=== PATIENT | male | born 1950 | race Caucasian/White ===

== ENCOUNTER 2021-12-16 20:28 | Inpatient (IN) | payer MEDICARE, OTHER ==
[2021-12-16 22:00] LABS: Appearance,Urine Clear (Clear); Bilirubin,Urine Negative (Negative); Blood,Urine Negative (Negative); Color,Urine Colorless; Glucose,Urine (UA) Trace (Negative); Ketones,Urine Negative (Negative); Leukocyte Esterase,Urine Negative (Negative); Nitrite,Urine Negative (Negative); Protein,Urine Negative (Negative); Specific Gravity,Urine 1.009 (1.001-1.035); Urobilinogen,Urine <2.0 mg/dL (<2.0)
[2021-12-17] MEDS ORDERED: SODIUM CHLORIDE 0.9% 1,000 ML IV STA (01:05)
[2021-12-17] MEDS ORDERED: KETOROLAC 15 MG/ML 1 ML VIAL IVP STA (01:39)
[2021-12-17] MEDS ORDERED: MORPHINE SULFATE 4 MG/ML SYRINGE IVP STA (01:39)
--- NOTE | 2021-12-17 01:39 | ED ---
Recheck HPI - General Chief Complaint: Abdominal Pain Stated Complaint: kidney stones Time Seen by Provider: 12/17/21 01:01 Source: patient Mode of arrival: ambulatory Limitations: no limitations - History of Present Illness Initial Comments: This is a 71-year-old male to the emergency department for evaluation. Patient was told by primary care to come seen regarding severe back pain possible kidney stone. Patient was told he has kidney stones and patient states he has a history of kidney stones. Patient states he has severe back pain both sides rating around his abdomen. He states the pain stability, he cannot walk. Have difficulty with movement. MD Complaint: medication refill request -: week(s) Returns Today for: persistent/worsening pain related to initial visit Symptoms Since Prior Visit: worsening pain Context: ran out of medication Associated Symptoms: abdominal pain Treatments Prior to Arrival: Given Pain Meds on - Related Data Allergies Allergy/AdvReac Type Severity Reaction Status Date / Time No Known Allergies Allergy Verified 12/16/21 20:51 Review of Systems ROS Statement: Those systems with pertinent positive or pertinent negative responses have been documented in the HPI. ROS Other: All systems not noted in ROS Statement are negative. Past Medical History Past Medical History: Coronary Artery Disease (CAD), Dementia, Hypertension History of Any Multi-Drug Resistant Organisms: None Reported Past Surgical History: Heart Catheterization With Stent Past Psychological History: No Psychological Hx Reported Smoking Status: Former smoker Past Alcohol Use History: None Reported Past Drug Use History: None Reported General Exam Limitations: no limitations General appearance: alert, in no apparent distress, anxious Head exam: Present: atraumatic, normocephalic, normal inspection Eye exam: Present: normal appearance, PERRL, EOMI. Absent: scleral icterus, conjunctival injection, periorbital swelling ENT exam: Present: normal exam, mucous membranes moist Neck exam: Present: normal inspection. Absent: tenderness, meningismus, lymphadenopathy Respiratory exam: Present: normal lung sounds bilaterally. Absent: respiratory distress, wheezes, rales, rhonchi, stridor Cardiovascular Exam: Present: normal rhythm, tachycardia, normal heart sounds. Absent: systolic murmur, diastolic murmur, rubs, gallop, clicks GI/Abdominal exam: Present: soft, normal bowel sounds. Absent: distended, tenderness, guarding, rebound, rigid Extremities exam: Present: normal inspection, full ROM, normal capillary refill. Absent: tenderness, pedal edema, joint swelling, calf tenderness Back exam: Present: normal inspection, tenderness, CVA tenderness (R), muscle spasm. Absent: full ROM Neurological exam: Present: alert, oriented X3, CN II-XII intact Psychiatric exam: Present: normal affect, normal mood Skin exam: Present: warm, dry, intact, normal color. Absent: rash Course Vital Signs 12/16/21 20:44 Temperature 98.3 F Pulse Rate 114 H Respiratory 20 Rate Blood Pressure 184/79 O2 Sat by Pulse 97 Oximetry - Reevaluation(s) Reevaluation #1: 12/17/21 04:34 Medical record is reviewed Reevaluation #2: 12/17/21 04:34 Patient's pain is improved Reevaluation #3: 12/17/21 04:34 Patient informed results and questions answered - Consultations Consultation #1: Spoke with Dr. Corbin we'll admit this patient Medical Decision Making - Medical Decision Making 71 male to the emergency department for evaluation patient presents today for evaluation regards to severe back pain. Back pain with a lumbar spine fracture L S1 compression fracture. Patient given pain control which has mild improvement will be admitted for further evaluation management - Lab Data Result diagrams: 12/17/21 01:43 12/17/21 01:43 Lab Results 12/16/21 12/17/21 12/17/21 Range/Units 20:55 01:43 01:43 WBC 9.3 (3.8-10.6) k/uL RBC 3.51 L (4.30-5.90) m/uL Hgb 11.2 L (13.0-17.5) gm/dL Hct 33.3 L (39.0-53.0) % MCV 94.9 (80.0-100.0) fL MCH 32.1 (25.0-35.0) pg MCHC 33.8 (31.0-37.0) g/dL RDW 12.9 (11.5-15.5) % Plt Count 327 (150-450) k/uL MPV 8.0 Neutrophils % 72 % Lymphocytes % 15 % Monocytes % 7 % Eosinophils % 2 % Basophils % 0 % Neutrophils # 6.7 (1.3-7.7) k/uL Lymphocytes # 1.4 (1.0-4.8) k/uL Monocytes # 0.6 (0-1.0) k/uL Eosinophils # 0.2 (0-0.7) k/uL Basophils # 0.0 (0-0.2) k/uL Sodium 133 L (137-145) mmol/L Potassium 5.0 (3.5-5.1) mmol/L Chloride 102 (98-107) mmol/L Carbon Dioxide 16 L (22-30) mmol/L Anion Gap 15 mmol/L BUN 27 H (9-20) mg/dL Creatinine 1.91 H (0.66-1.25) mg/dL Est GFR (CKD-EPI)AfAm 40 (>60 ml/min/1.73 sqM) Est GFR (CKD-EPI)NonAf 35 (>60 ml/min/1.73 sqM) Glucose 219 H (74-99) mg/dL Plasma Lactic Acid Dirk (0.7-2.0) mmol/L Calcium 9.1 (8.4-10.2) mg/dL Total Bilirubin 0.6 (0.2-1.3) mg/dL AST 25 (17-59) U/L ALT 27 (4-49) U/L Alkaline Phosphatase 98 (38-126) U/L Total Protein 6.9 (6.3-8.2) g/dL Albumin 4.3 (3.5-5.0) g/dL Amylase 78 (30-110) U/L Lipase 154 (23-300) U/L Urine Color Colorless Urine Appearance Clear (Clear) Urine pH 5.0 (5.0-8.0) Ur Specific [place] 1.009 (1.001-1.035) Urine Protein Negative (Negative) Urine Glucose (UA) Trace H (Negative) Urine Ketones Negative (Negative) Urine Blood Negative (Negative) Urine Nitrite Negative (Negative) Urine Bilirubin Negative (Negative) Urine Urobilinogen <2.0 (<2.0) mg/dL Ur Leukocyte Esterase Negative (Negative) 12/17/21 Range/Units 01:43 WBC (3.8-10.6) k/uL RBC (4.30-5.90) m/uL Hgb (13.0-17.5) gm/dL Hct (39.0-53.0) % MCV (80.0-100.0) fL MCH (25.0-35.0) pg MCHC (31.0-37.0) g/dL RDW (11.5-15.5) % Plt Count (150-450) k/uL MPV Neutrophils % % Lymphocytes % % Monocytes % % Eosinophils % % Basophils % % Neutrophils # (1.3-7.7) k/uL Lymphocytes # (1.0-4.8) k/uL Monocytes # (0-1.0) k/uL Eosinophils # (0-0.7) k/uL Basophils # (0-0.2) k/uL Sodium (137-145) mmol/L Potassium (3.5-5.1) mmol/L Chloride (98-107) mmol/L Carbon Dioxide (22-30) mmol/L Anion Gap mmol/L BUN (9-20) mg/dL Creatinine (0.66-1.25) mg/dL Est GFR (CKD-EPI)AfAm (>60 ml/min/1.73 sqM) Est GFR (CKD-EPI)NonAf (>60 ml/min/1.73 sqM) Glucose (74-99) mg/dL Plasma Lactic Acid Dirk 3.2 H* (0.7-2.0) mmol/L Calcium (8.4-10.2) mg/dL Total Bilirubin (0.2-1.3) mg/dL AST (17-59) U/L ALT (4-49) U/L Alkaline Phosphatase (38-126) U/L Total Protein (6.3-8.2) g/dL Albumin (3.5-5.0) g/dL Amylase (30-110) U/L Lipase (23-300) U/L Urine Color Urine Appearance (Clear) Urine pH (5.0-8.0) Ur Specific [place] (1.001-1.035) Urine Protein (Negative) Urine Glucose (UA) (Negative) Urine Ketones (Negative) Urine Blood (Negative) Urine Nitrite (Negative) Urine Bilirubin (Negative) Urine Urobilinogen (<2.0) mg/dL Ur Leukocyte Esterase (Negative) - Radiology Data Radiology results: report reviewed (CT lumbosacral spine area and pelvis does show L1 compression fracture4 compression fracture old), image reviewed Disposition Clinical Impression: Compression fracture of L1 lumbar vertebra, Back pain Disposition: ADMITTED IP TO THIS [facility] Condition: Good Is patient prescribed a controlled substance at d/c from ED?: No Referrals: Ashutosh Johnston MD [Primary Care Provider] - 1-2 days Time of Disposition: 04:30
[2021-12-17 02:21] LABS: Basophils % (A) 0 %; Eosinophils # (A) 0.2 k/uL (0-0.7); Eosinophils % (A) 2 %; HCT 33.3 % (39.0-53.0); HGB 11.2 gm/dL (13.0-17.5); Lymphocytes # (A) 1.4 k/uL (1.0-4.8); Lymphocytes % (A) 15 %; MCH 32.1 pg (25.0-35.0); MCHC 33.8 g/dL (31.0-37.0); MCV 94.9 fL (80.0-100.0); Monocytes # (A) 0.6 k/uL (0-1.0); Monocytes % (A) 7 %; Neutrophils # (A) 6.7 k/uL (1.3-7.7); Neutrophils % (A) 72 %; Platelet Count 327 k/uL (150-450); RBC 3.51 m/uL (4.30-5.90); RDW 12.9 % (11.5-15.5); WBC 9.3 k/uL (3.8-10.6)
--- NOTE | 2021-12-17 02:49 | CT ---
EXAMINATION TYPE: CT abdomen pelvis wo con DATE OF EXAM: 12/17/2021 COMPARISON: Single view single view HISTORY: abdominal pain/ kidney stones. no prior on PACS CT DLP: 545.7 mGycm Automated exposure control for dose reduction was used. Images obtained from the diaphragm to the floor the pelvis without contrast. The lung bases are clear. No pleural effusion. Heart size is normal. No pericardial effusion. There i s coronary artery calcification. There are multiple calcified gallstones. Liver is intact. The bile ducts are not dilated. Spleen is i ntact. The stomach is intact. There is no pancreatic mass. There is no adrenal mass. Kidneys show normal size and contour. No hydronephrosis. The ureters are no t dilated. No retroperitoneal adenopathy. The bladder distends smoothly. No inguinal hernia no free f luid in the pelvis. No pelvic mass. There is no mesenteric edema. There is no ascites or free air. No sign of a bowel obstruction. Append ix not seen. No sign of thickened appendix. There is 2 mm calculus lower pole left kidney. The lumbar vertebrae have normal alignment. There is L1 compression fracture 30%. This fracture could be acute. The bony pelvis is intact. The hip joints are intact. IMPRESSION: Nonobstructing left renal calculus. L1 compression fracture could be an acute fracture. There is L4 m ild compression fracture which is likely old.
[2021-12-17 02:59] LABS: Albumin 4.3 g/dL (3.5-5.0); Calcium 9.1 mg/dL (8.4-10.2); Total Bilirubin 0.6 mg/dL (0.2-1.3); Total Protein 6.9 g/dL (6.3-8.2)
[2021-12-17] MEDS ORDERED: ACETAMINOPHEN TAB 325 MG TAB PO PRN (04:32)
[2021-12-17] MEDS ORDERED: ONDANSETRON 4 MG/2 ML VIAL IVP PRN (04:32)
[2021-12-17] MEDS ORDERED: MORPHINE SULFATE 4 MG/ML SYRINGE IV PRN (04:32)
[2021-12-17] MEDS ORDERED: NALOXONE 0.4 MG/ML 1 ML VIAL IV PRN (04:32)
[2021-12-17] MEDS ORDERED: HYDROmorphone 1 MG/ML 1 ML SYRINGE IVP STA (04:32)
[2021-12-17] MEDS ORDERED: DEXTROSE 50% SYRINGE 50 ML IVP PRN ×2 (09:38)
[2021-12-17] MEDS ORDERED: lisinopriL 10 MG TAB PO SCH (10:00)
[2021-12-17] MEDS: SODIUM CHLORIDE 0.9% 1,000 ML IV SCH ×3 (10:40→21:57)
[2021-12-17] MEDS: PANTOPRAZOLE 40 MG TABLET PO SCH (10:41)
[2021-12-17] MEDS: MULTIVITAMINS, THERA 1 EACH TAB PO SCH (10:41)
[2021-12-17] MEDS: ASPIRIN 81 MG PO SCH (10:41)
[2021-12-17] MEDS: TAMSULOSIN 0.4 MG CAP.ER.24H PO SCH (10:41)
[2021-12-17] MEDS: METOPROLOL TARTRATE 25 MG TAB PO SCH ×2 (10:41→19:59)
[2021-12-17] MEDS: ENOXAPARIN 40 MG/0.4 ML SYRINGE SQ SCH (10:41)
[2021-12-17] MEDS: INSULIN DETEMIR (LEVEMIR) 100 UNIT/ML SYR SQ SCH (10:42)
[2021-12-17] MEDS ORDERED: CALCIUM CARBONATE 500 MG CHEWABLE PO PRN (11:20)
[2021-12-17] MEDS ORDERED: TEMAZEPAM 15 MG CAP PO PRN (11:20)
[2021-12-17] MEDS ORDERED: LORazepam 0.5 MG TAB PO PRN (11:20)
[2021-12-17] MEDS: LIDOCAINE 5% PATCH TOPICAL SCH (12:01)
--- NOTE | 2021-12-17 12:02 | P.HPIM ---
History of Present Illness H&P Date: 12/17/21 Chief Complaint: Back pain This is a pleasant 71-year-old patient follows with Dr. Johnston. Chronic stable medical conditions include CAD with stent, hypertension, some cognitive impairment, chronically uses a cane. Patient has known gallstones and kidney stone. About 2 weeks ago rather suddenly patient developed pain describes the middle of the mid to lower back. Pain sometimes does radiate down to the sites. Slight nausea. Patient did get pain medications from his family doctor. It has been unclear if patient's kidney stones were causing his symptoms. No change in urinary symptoms. At her baseline has 2 or 3 bowel movements a day now but has been some constipation because of pain medication using a laxative. Denies any fever. Denies any fall. Any movement makes the pain worse. Finding it difficult to walk because of the same. Review of systems: GEN.: Tired EYES: None HEENT: Decreased hearing NECK: None RESPIRATORY: None CARDIOVASCULAR: None GASTROINTESTINAL: None GENITOURINARY: None MUSCULOSKELETAL: As above LYMPHATICS: None HEMATOLOGICAL: None PSYCHIATRY: None NEUROLOGICAL: Slightly forgetful Past medical history to include: CAD with stent, hypertension, some cognitive impairment, hypertension Social history: . Retired from factory work. No alcohol. Stopped smoking over 20 years ago. Family history: Reviewed, noncontributory to presentation Physical examination: VITAL SIGNS: 98.3, 114, 20, 1 38 x 78, 98% room air GENERAL: BMI 24, sitting up in a chair awake a bit uncomfortable. EYES: Pupils equal. Conjunctiva normal. HEENT: External appearance of nose and ears normal, oral cavity grossly normal decreased hearing. NECK: JVD not raised; masses not palpable. HEART: First and second heart sounds are normal; no edema. LUNGS: Respiratory rate normal; clear to auscultation. ABDOMEN: Soft, nontender, liver spleen not palpable, no masses palpable. PSYCH: Alert and oriented x3; mood and affect normal. MUSCULOSKELETAL:No Clubbing/cyanosis;muscles-grossly intact, reproducible pain on moving the back on her axial axis. Mild tenderness bilaterally in the paraspinal area in the lumbar area NEUROLOGICAL: Cranial nerves grossly intact; no facial asymmetry, power and sensation grossly intact. LYMPHATICS: No lymph nodes palpable in the axilla and neck INVESTIGATIONS, reviewed in the clinical context: WBC 9.3 hemoglobin 11.2 platelets 327 sodium 133 potassium 5 be on 27 creatinine 1.91 UA: Glucose trace Computed tomography scan abdomen and pelvis without contrast: Multiple calcified gallstones. Mild ducts not dilated. 2 mm calculus lower pole left kidney. L1 compression fraction 30%. Could be acute. L4 mild compression fracture. Assessment and plan: -Patient is at acute mid back pain in the lumbar area for about 2 weeks. Came on rather suddenly. Sometimes does radiate to the sides. Increase with body movements and ventral get out of bed. No fever no chills. Patient's had some chronic radiation down to the right thigh. Computed tomography scan does show L1 compression fracture for her to be acute and possible L4 that is chronic. Consults orthopedic spine. K pad. Will need a brace. [place] 5 scheduled. Flexeril for muscle spasm. Avoid NSAIDs because of kidney function -Left kidney 2 mm kidney stone. Not felt to be causing the presentation as patient has been on the right side too. Patient rather concerned about the same. We'll get a urology consultation. Hydrate. -Calcified right-sided cholelithiasis. No right upper quadrant tenderness. [place] to be asymptomatic -CAD with stent Aspirin, Lopressor -Diabetes mellitus type 2 on oral hypoglycemic Hold metformin because of renal function. Levemir 16 units. Follow Accu-Cheks with sliding scale -Hyperlipidemia Lipitor -Acute versus chronic kidney disease. Patient had been taking Motrin at home. Hold the same. Hold quinapril. IV fluids. Renal ultrasound. Repeat labs. -GERD Nexium -BPH Flomax Lumbar spine x-ray. Consult orthopedic spine. Levemir to 16 units. Follow Accu-Cheks. Hold oral hypoglycemic. Resume other home medications. K pad. [place]. Flexeril. Renal ultrasound. Given the complexity and severity of patient's condition expect the patient to be in the hospital at least for 2 overnights Past Medical History Past Medical History: Coronary Artery Disease (CAD), Dementia, Hypertension History of Any Multi-Drug Resistant Organisms: None Reported Past Surgical History: Heart Catheterization With Stent Past Psychological History: No Psychological Hx Reported Smoking Status: Former smoker Past Alcohol Use History: None Reported Past Drug Use History: None Reported Medications and Allergies Home Medications Medication Instructions Recorded Confirmed Type Aspirin EC [Ecotrin Low Dose] 81 mg PO DAILY 12/17/21 12/17/21 History Atorvastatin [Lipitor] 80 mg PO HS 10/13/22 10/13/22 History Esomeprazole Magnesium [NexIUM] 20 mg PO DAILY 12/17/21 12/17/21 History HYDROcodone/APAP 10-325MG [[place] 1 tab PO TID 12/17/21 12/17/21 History 10-325] Ibuprofen [Motrin] 800 mg PO TID 12/17/21 12/17/21 History Metoprolol Tartrate [Lopressor] 25 mg PO BID 12/17/21 12/17/21 History Multivitamins, Thera [Multivitamin 1 tab PO DAILY 12/17/21 12/17/21 History (formulary)] Quinapril HCl 10 mg PO DAILY 12/17/21 12/17/21 History Saw [place] 500 mg PO DAILY 12/17/21 12/17/21 History Tamsulosin HCl [Flomax] 0.4 mg PO DAILY 12/17/21 12/17/21 History glipiZIDE [Glucotrol] 10 mg PO AC-BID 12/17/21 12/17/21 History metFORMIN HCL [Glucophage] 1,700 mg PO BID 12/17/21 12/17/21 History Allergies Allergy/AdvReac Type Severity Reaction Status Date / Time No Known Allergies Allergy Verified 12/17/21 08:16 Physical Exam Vitals: Vital Signs Temp Pulse Resp BP Pulse Ox 12/16/21 20:44 98.3 F 114 H 20 184/79 97 Intake and Output 12/16/21 12/17/21 12/17/21 22:59 06:59 14:59 Other: Weight 80.286 kg Results CBC & Chem 7: 12/17/21 01:43 12/17/21 01:43 Labs: Abnormal Lab Results - Last 24 Hours (Table) 12/16/21 12/17/21 12/17/21 Range/Units 20:55 01:43 01:43 RBC 3.51 L (4.30-5.90) m/uL Hgb 11.2 L (13.0-17.5) gm/dL Hct 33.3 L (39.0-53.0) % Sodium 133 L (137-145) mmol/L Carbon Dioxide 16 L (22-30) mmol/L BUN 27 H (9-20) mg/dL Creatinine 1.91 H (0.66-1.25) mg/dL Glucose 219 H (74-99) mg/dL Plasma Lactic Acid Dirk (0.7-2.0) mmol/L Urine Glucose (UA) Trace H (Negative) 12/17/21 Range/Units 01:43 RBC (4.30-5.90) m/uL Hgb (13.0-17.5) gm/dL Hct (39.0-53.0) % Sodium (137-145) mmol/L Carbon Dioxide (22-30) mmol/L BUN (9-20) mg/dL Creatinine (0.66-1.25) mg/dL Glucose (74-99) mg/dL Plasma Lactic Acid Dirk 3.2 H* (0.7-2.0) mmol/L Urine Glucose (UA) (Negative)
--- NOTE | 2021-12-17 12:11 | P.CNOR ---
History of Present Illness - HPI Consult date: 12/17/21 Consult reason: low back pain History of present illness: Patient's very pleasant 71-year-old male who has been having low back pain over the past 2 weeks. He does not note any specific event or specific trauma. He says that he did not have any falls or issues with his back. He says that he has a history of some kidney stones in the pain stems from his bilateral flanks around his abdomen. He says his been getting worse for him over the past 2 weeks despite conservative care with his primary care service and urgent care. He been taking some pain medications however his pain is getting so bad that he had to present to the hospital. He denies any changes in bowel bladder function. He denies any weakness in his lower extremity. Denies any numbness tingling in his lower extremities. He admits to having prior issues in his lower back he says that over 10 years ago he had a couple of injuries where he broke his tailbone and he broke of bone closer to his shoulder blades and his back. He does not recall which vertebrae he had injured at that point. He says that this current pain does not necess arily feel like that. He says the pain is primarily around his flanks and radiating toward abdomen and lower ribs on the bilateral sides. He denies nausea or vomiting. Denies blood in his urine. Denies any frequency or dysuria. Review of Systems As stated per HPI. He denies any chest pain shortness breath. Denies any changes in bowel bladder function. He is admits to some amount of constipation with his pain medications with past couple weeks. Denies any loss of control his bowel bladder. Denies any weakness in his lower extremities. Denies any radicular pain. Past Medical History Past Medical History: Coronary Artery Disease (CAD), Dementia, Hypertension History of Any Multi-Drug Resistant Organisms: None Reported Past Surgical History: Heart Catheterization With Stent Past Psychological History: No Psychological Hx Reported Smoking Status: Former smoker Past Alcohol Use History: None Reported Past Drug Use History: None Reported Medications and Allergies Home Medications Medication Instructions Recorded Confirmed Type Aspirin EC [Ecotrin Low Dose] 81 mg PO DAILY 12/17/21 12/17/21 History Atorvastatin [Lipitor] 80 mg PO HS 12/17/21 12/17/21 History Esomeprazole Magnesium [NexIUM] 20 mg PO DAILY 12/17/21 12/17/21 History HYDROcodone/APAP 10-325MG [[place] 1 tab PO TID 12/17/21 12/17/21 History 10-325] Ibuprofen [Motrin] 800 mg PO TID 12/17/21 12/17/21 History Metoprolol Tartrate [Lopressor] 25 mg PO BID 12/17/21 12/17/21 History Multivitamins, Thera [Multivitamin 1 tab PO DAILY 12/17/21 12/17/21 History (formulary)] Quinapril HCl 10 mg PO DAILY 12/17/21 12/17/21 History Saw [place] 500 mg PO DAILY 12/17/21 12/17/21 History Tamsulosin HCl [Flomax] 0.4 mg PO DAILY 12/17/21 12/17/21 History glipiZIDE [Glucotrol] 10 mg PO AC-BID 12/17/21 12/17/21 History metFORMIN HCL [Glucophage] 1,700 mg PO BID 12/17/21 12/17/21 History Allergies Allergy/AdvReac Type Severity Reaction Status Date / Time No Known Allergies Allergy Verified 12/17/21 08:16 Physical Examination Osteopathic Statement: *. No significant issues noted on an osteopathic structural exam other than those noted in the History and Physical/Consult. - L Spine: dermatomal strength & reflexes bilateral Strength: hip flexion: 5/5 (Lower extremity some 5-5 muscle strength throughout. No pain with internal extra rotation is hips. His full active passive range of motion of bilateral lower extremities) Strength: hip extension: 5/5 (His back there is no open wounds lacerations or abrasions. The skin is clear. He is nontender to palpation over the midline. Nontender to percussion at the midline. He has some tenderness to percussion over his flanks bilaterally) Results - Labs Labs: Abnormal Lab Results - Last 24 Hours (Table) 12/16/21 12/17/21 12/17/21 Range/Units 20:55 01:43 01:43 RBC 3.51 L (4.30-5.90) m/uL Hgb 11.2 L (13.0-17.5) gm/dL Hct 33.3 L (39.0-53.0) % Sodium 133 L (137-145) mmol/L Carbon Dioxide 16 L (22-30) mmol/L BUN 27 H (9-20) mg/dL Creatinine 1.91 H (0.66-1.25) mg/dL Glucose 219 H (74-99) mg/dL Plasma Lactic Acid Dirk (0.7-2.0) mmol/L Urine Glucose (UA) Trace H (Negative) 12/17/21 Range/Units 01:43 RBC (4.30-5.90) m/uL Hgb (13.0-17.5) gm/dL Hct (39.0-53.0) % Sodium (137-145) mmol/L Carbon Dioxide (22-30) mmol/L BUN (9-20) mg/dL Creatinine (0.66-1.25) mg/dL Glucose (74-99) mg/dL Plasma Lactic Acid Dirk 3.2 H* (0.7-2.0) mmol/L Urine Glucose (UA) (Negative) H & H 12/17/21 Range/Units 01:43 Hgb 11.2 L (13.0-17.5) gm/dL Hct 33.3 L (39.0-53.0) % Result Diagrams: 12/17/21 01:43 12/17/21 01:43 - Diagnostic results CT Scan - lumbar: report reviewed (Report states not occluding renal calculus. There is also compression deformities of uncertain age at L1 and chronic at L4), image reviewed (Chest abdomen pelvis CT is reviewed that shows evidence of compression deformity at L1 and at L4. There is about 60% height loss at L1 and 30% height loss at L4. They fractured L4 seems to be chronic. It is difficult to determine the chronicity of the fracture at L1. ) Assessment and Plan Assessment: Bilateral flank pain Pain at the thoracic lumbar junction and radiating to the abdomen No evidence of neurologic deficit Compression deformities noted at L1 and L4 CT was positive renal calculi Plan: Bilateral flank pain Pain at the thoracic lumbar junction and radiating to the abdomen No evidence of neurologic deficit Compression deformities noted at L1 and L4 CT was positive renal calculi It is difficult to fully determine the nature of the patient's pain at his low back. He is not having specific midline pain at his thoracic or lumbar spine but we do find compression deformities at L1 and L4. There is some history of fracture with injury over 10 years ago and that may have caused these findings. He is not having radicular symptoms he is not having weakness in his lower extremity. I do not think that we would plan any surgical intervention at this point in terms of his spine. He could have some benefit with use of an LSO brace and we will order a brace for him whenever he is out of bed. He does not need to use the brace while in bed or for bathing. Certainly there is difficult to determine the nature of his symptoms and he may be having issues with kidney stones. There is positive renal calculi on computed tomography scan and he has some flank pain. He is continued his workup and medical management. From an orthopedic spine standpoint he is not having neurologic deficit and the fractures appear to be relatively stable and can be treated conservatively with bracing. We have ordered the brace and it is okay for him to be discharged home to follow up with us on an outpatient in the next 2 weeks to see how conservative care is progressing.
[2021-12-17] MEDS: CYCLOBENZAPRINE 5 MG TAB PO SCH ×3 (12:48→21:56)
--- NOTE | 2021-12-17 13:31 | US ---
EXAMINATION TYPE: US kidneys/renal and bladder DATE OF EXAM: 12/17/2021 COMPARISON: CT CLINICAL HISTORY: assessfor ckd. Hx stones. EXAM MEASUREMENTS: Right Kidney: 11.7 x 5.4 x 4.9 cm Left Kidney: 11.8 x 4.7 x 4.8 cm Right Kidney: No hydronephrosis or masses seen Left Kidney: No hydronephrosis or masses seen Unable to visualize spleen for comparison. Bladder: Undistended, unable to evaluate. Bilateral Jets seen: No IMPRESSION: 1. The left renal calculus by CT scan not well seen. No evidence of hydronephrosis.
[2021-12-17 14:26] LABS: Glucose,Whole Blood 260 mg/dL (70-110)
[2021-12-17] MEDS: HYDROcodone/APAP 5-325MG 1 EACH TAB PO SCH ×3 (14:33→19:58)
[2021-12-17] MEDS: INSULIN ASPART (NovoLOG) 100 UNIT/ML VIAL SQ SCH ×2 (14:34→18:05)
--- NOTE | 2021-12-17 14:41 | XR ---
3 view lumbar spine. DATE: 12/17/2021. COMPARISON: None available. CLINICAL HISTORY: Low back pain. FINDINGS: There is a significant compression deformity along the superior endplate of L1 which has a likely sub acute appearance approximately 50% vertebral body height loss. There is a mild compression deformity along the superior endplate of L4 which is also likely subacute to chronic in appearance. The bones are diffusely demineralized. The vertebral bodies are otherwise well aligned. The disc spaces are maintained. IMPRESSION: 1. Findings described above are thought to be subacute. 2. Diffuse bony demineralization.
[2021-12-17] MEDS ORDERED: HYDROcodone/APAP 10-325MG 1 EACH TAB PO SCH (16:00)
[2021-12-17 16:58] LABS: Glucose,Whole Blood 214 mg/dL (70-110)
--- NOTE | 2021-12-17 19:07 | P.GSCN ---
History of Present Illness Consult date: 12/17/21 History of present illness: 71 male in the hospital with back pain He does have compression fractures of the lumbar spine on ct scan There is a history of stones some 15 years ago. He has a 2 mm stone in his llp of the kidney, non obstructing. his urine is clear. He had a normal renal bladder us. His pain is bilateral over this si joint. It has gone on for about two weeks. He has a hard time moving with this pain. There is no colic. There has been no gross hematuria. Past Medical History Past Medical History: Coronary Artery Disease (CAD), Dementia, Hypertension History of Any Multi-Drug Resistant Organisms: None Reported Past Surgical History: Heart Catheterization With Stent Past Psychological History: No Psychological Hx Reported Smoking Status: Former smoker Past Alcohol Use History: None Reported Past Drug Use History: None Reported - Past Family History Father Family Medical History: Congestive Heart Failure (CHF), Diabetes Mellitus Mother Family Medical History: Diabetes Mellitus Medications and Allergies Home Medications Medication Instructions Recorded Confirmed Type Aspirin EC [Ecotrin Low Dose] 81 mg PO DAILY 12/17/21 12/17/21 History Atorvastatin [Lipitor] 80 mg PO HS 12/17/21 12/17/21 History Esomeprazole Magnesium [NexIUM] 20 mg PO DAILY 12/17/21 12/17/21 History HYDROcodone/APAP 10-325MG [[place] 1 tab PO TID 12/17/21 12/17/21 History 10-325] Ibuprofen [Motrin] 800 mg PO TID 12/17/21 12/17/21 History Metoprolol Tartrate [Lopressor] 25 mg PO BID 12/17/21 12/17/21 History Multivitamins, Thera [Multivitamin 1 tab PO DAILY 12/17/21 12/17/21 History (formulary)] Quinapril HCl 10 mg PO DAILY 12/17/21 12/17/21 History Saw [place] 500 mg PO DAILY 12/17/21 12/17/21 History Tamsulosin HCl [Flomax] 0.4 mg PO DAILY 12/17/21 12/17/21 History glipiZIDE [Glucotrol] 10 mg PO AC-BID 12/17/21 12/17/21 History metFORMIN HCL [Glucophage] 1,700 mg PO BID 12/17/21 12/17/21 History Allergies Allergy/AdvReac Type Severity Reaction Status Date / Time No Known Allergies Allergy Verified 12/17/21 08:16 Surgical - Exam Vital Signs Temp Pulse Resp BP Pulse Ox 98.3 F 114 H 20 184/79 97 12/16/21 20:44 12/16/21 20:44 12/16/21 20:44 12/16/21 20:44 12/16/21 20:44 - General moderate pain with movement well developed, well nourished - Eyes PERRL - ENT no hearing loss - Neck trachea midline - Cardiovascular Rhythm: regular - Abdomen Abdomen: soft, non tender - Integumentary no rash - Neurologic normal sensation - Musculoskeletal hunched posture, slow and wobbly gait. - Psychiatric oriented to time, oriented to person, oriented to place, speech is normal, memory intact Results - Labs 12/17/21 01:43 12/17/21 01:43 Abnormal Lab Results - Last 24 Hours (Table) 12/16/21 12/17/21 12/17/21 Range/Units 20:55 01:43 01:43 RBC 3.51 L (4.30-5.90) m/uL Hgb 11.2 L (13.0-17.5) gm/dL Hct 33.3 L (39.0-53.0) % Sodium 133 L (137-145) mmol/L Carbon Dioxide 16 L (22-30) mmol/L BUN 27 H (9-20) mg/dL Creatinine 1.91 H (0.66-1.25) mg/dL Glucose 219 H (74-99) mg/dL Plasma Lactic Acid Dirk (0.7-2.0) mmol/L Urine Glucose (UA) Trace H (Negative) 12/17/21 Range/Units 01:43 RBC (4.30-5.90) m/uL Hgb (13.0-17.5) gm/dL Hct (39.0-53.0) % Sodium (137-145) mmol/L Carbon Dioxide (22-30) mmol/L BUN (9-20) mg/dL Creatinine (0.66-1.25) mg/dL Glucose (74-99) mg/dL Plasma Lactic Acid Dirk 3.2 H* (0.7-2.0) mmol/L Urine Glucose (UA) (Negative) Diabetes panel 12/17/21 Range/Units 01:43 Sodium 133 L (137-145) mmol/L Potassium 5.0 (3.5-5.1) mmol/L Chloride 102 (98-107) mmol/L Carbon Dioxide 16 L (22-30) mmol/L BUN 27 H (9-20) mg/dL Creatinine 1.91 H (0.66-1.25) mg/dL Glucose 219 H (74-99) mg/dL Calcium 9.1 (8.4-10.2) mg/dL AST 25 (17-59) U/L ALT 27 (4-49) U/L Alkaline Phosphatase 98 (38-126) U/L Total Protein 6.9 (6.3-8.2) g/dL Albumin 4.3 (3.5-5.0) g/dL Calcium panel 12/17/21 Range/Units 01:43 Calcium 9.1 (8.4-10.2) mg/dL Albumin 4.3 (3.5-5.0) g/dL Pituitary panel 12/17/21 Range/Units 01:43 Sodium 133 L (137-145) mmol/L Potassium 5.0 (3.5-5.1) mmol/L Chloride 102 (98-107) mmol/L Carbon Dioxide 16 L (22-30) mmol/L BUN 27 H (9-20) mg/dL Creatinine 1.91 H (0.66-1.25) mg/dL Glucose 219 H (74-99) mg/dL Calcium 9.1 (8.4-10.2) mg/dL Adrenal panel 12/17/21 Range/Units 01:43 Sodium 133 L (137-145) mmol/L Potassium 5.0 (3.5-5.1) mmol/L Chloride 102 (98-107) mmol/L Carbon Dioxide 16 L (22-30) mmol/L BUN 27 H (9-20) mg/dL Creatinine 1.91 H (0.66-1.25) mg/dL Glucose 219 H (74-99) mg/dL Calcium 9.1 (8.4-10.2) mg/dL Total Bilirubin 0.6 (0.2-1.3) mg/dL AST 25 (17-59) U/L ALT 27 (4-49) U/L Alkaline Phosphatase 98 (38-126) U/L Total Protein 6.9 (6.3-8.2) g/dL Albumin 4.3 (3.5-5.0) g/dL - Imaging CT scan - abdomen: report reviewed, image reviewed CT scan - pelvis: report reviewed, image reviewed Assessment and Plan Assessment: Impression: back pain, non urologic. History of stones. Tiny asymptomatic non obstructing stone. Plan: The stone in the llp of the kidney is ot the cause of his pain. There is no evidence of a ureteral stone. Nothing needs to be done urologically
[2021-12-17] MEDS: ATORVASTATIN 80 MG TAB PO SCH (19:58)
[2021-12-18] MEDS ORDERED: HYDROcodone/APAP 5-325MG 1 EACH TAB ONE
[2021-12-18] MEDS: SODIUM CHLORIDE 0.9% 1,000 ML IV SCH (05:09)
[2021-12-18] MEDS: HYDROcodone/APAP 5-325MG 1 EACH TAB PO SCH ×4 (05:09→17:36)
[2021-12-18 08:21] LABS: African American GFR (CKD) 37 (>60 ml/min/1.73 sqM); Anion Gap 11 mmol/L; Blood Urea Nitrogen 30 mg/dL (9-20); Calcium 8.7 mg/dL (8.4-10.2); Carbon Dioxide 19 mmol/L (22-30); Chloride 104 mmol/L (98-107); Glucose 236 mg/dL (74-99); Non-African American GFR(CKD) 32 (>60 ml/min/1.73 sqM); Potassium 5.5 mmol/L (3.5-5.1); Sodium 134 mmol/L (137-145)
[2021-12-18] MEDS: INSULIN ASPART (NovoLOG) 100 UNIT/ML VIAL SQ SCH ×3 (08:50→17:36)
[2021-12-18] MEDS: LIDOCAINE 5% PATCH TOPICAL SCH (08:50)
[2021-12-18] MEDS: TAMSULOSIN 0.4 MG CAP.ER.24H PO SCH (08:51)
[2021-12-18] MEDS: CYCLOBENZAPRINE 5 MG TAB PO SCH ×3 (08:51→20:58)
[2021-12-18] MEDS: ASPIRIN 81 MG PO SCH (08:51)
[2021-12-18] MEDS: INSULIN DETEMIR (LEVEMIR) 100 UNIT/ML SYR SQ SCH (08:51)
[2021-12-18] MEDS: PANTOPRAZOLE 40 MG TABLET PO SCH (08:51)
[2021-12-18] MEDS: MULTIVITAMINS, THERA 1 EACH TAB PO SCH (08:51)
[2021-12-18] MEDS: METOPROLOL TARTRATE 25 MG TAB PO SCH ×2 (08:51→20:58)
[2021-12-18] MEDS: ENOXAPARIN 40 MG/0.4 ML SYRINGE SQ SCH (08:51)
[2021-12-18] MEDS ORDERED: SODIUM CHLORIDE 0.9% 1,000 ML IV SCH (10:00)
--- NOTE | 2021-12-18 12:16 | P.NPCON ---
History of Present Illness - Reason for Consult acute renal failure - History of Present Illness Reason for consultation: Acute kidney injury History of present illness: Patient is a 71-year-old male seen in consultation for acute kidney injury. Creatinine was 1.9 when on admission and is 2.03 today. Unknown baseline renal function. Patient denies any personal history of kidney disease and does not f ollow with a electronics assembler outpatient. Patient presented to the hospital with low back pain. He's being followed by orthopedic surgery. No neuro deficits noted. He was found to have a nonobstructing kidney stone and was also seen by urology with no interventions planned. Patient denies any hematuria. No vomiting or diarrhea. Oral intake is good. Patient states he was taking nonsteroidals about a month ago but hasn't recently. States he was taking a pain medication but is unsure of the name. Patient does have history of diabetes mellitus and coronary artery disease with cardiac stents. He was taking quinapril at home but is currently held. Potassium today is 5.5. Denies chest pain or shortness of breath. Does admit to some swelling in his lower extremities. He has been receiving IV fluids since admission. Admits to constipation. Vital signs are stable. General: No acute distress. HEENT: Head exam is unremarkable. LUNGS: Breath sounds decreased. HEART: Rate and Rhythm are regular. ABDOMEN: Soft, mild distention. EXTREMITITES: 1+ edema. Past Medical History Past Medical History: Coronary Artery Disease (CAD), Dementia, Hypertension History of Any Multi-Drug Resistant Organisms: None Reported Past Surgical History: Heart Catheterization With Stent Date of Last Stent Placement:: 2003 Past Psychological History: No Psychological Hx Reported Smoking Status: Former smoker Past Alcohol Use History: None Reported Past Drug Use History: None Reported - Past Family History Father Family Medical History: Congestive Heart Failure (CHF), Diabetes Mellitus Mother Family Medical History: Diabetes Mellitus Medications and Allergies Home Medications Medication Instructions Recorded Confirmed Type Aspirin EC [Ecotrin Low Dose] 81 mg PO DAILY 12/17/21 12/17/21 History Atorvastatin [Lipitor] 80 mg PO HS 12/17/21 12/17/21 History Esomeprazole Magnesium [NexIUM] 20 mg PO DAILY 12/17/21 12/17/21 History HYDROcodone/APAP 10-325MG [[place] 1 tab PO TID 12/17/21 12/17/21 History 10-325] Ibuprofen [Motrin] 800 mg PO TID 12/17/21 12/17/21 History Metoprolol Tartrate [Lopressor] 25 mg PO BID 12/17/21 12/17/21 History Multivitamins, Thera [Multivitamin 1 tab PO DAILY 12/17/21 12/17/21 History (formulary)] Quinapril HCl 10 mg PO DAILY 12/17/21 12/17/21 History Saw [place] 500 mg PO DAILY 12/17/21 12/17/21 History Tamsulosin HCl [Flomax] 0.4 mg PO DAILY 12/17/21 12/17/21 History glipiZIDE [Glucotrol] 10 mg PO AC-BID 12/17/21 12/17/21 History metFORMIN HCL [Glucophage] 1,700 mg PO BID 12/17/21 12/17/21 History Allergies Allergy/AdvReac Type Severity Reaction Status Date / Time No Known Allergies Allergy Verified 12/17/21 08:16 Physical Exam Vitals: Vital Signs Temp Pulse Resp BP Pulse Ox 12/18/21 08:00 97.6 F 101 H 117/74 98 12/17/21 20:06 97.7 F 101 H 20 151/54 99 Intake and Output 12/17/21 12/18/21 12/18/21 22:59 06:59 14:59 Intake Total 640 120 450 Balance 640 120 450 Intake: Oral 640 120 450 Other: # Voids 1 3 Results - Lab Results Most recent lab results Calcium 8.7 mg/dL (8.4-10.2) 12/18/21 07:27 12/17/21 01:43 12/18/21 07:27 Assessment and Plan Plan: Assessment: 1. Acute kidney injury versus chronic kidney disease. Unknown baseline renal function. Creatinine stable in the range of 1.92 this admission. UA is benign. No hydronephrosis noted on ultrasound or CAT scan. 2. Hyperkalemia secondary to acute kidney injury, SEVERO inhibitor and metabolic acidosis. 3. Diabetes mellitus. 4. Coronary artery disease. 5. Low back pain without neurologic deficits. Being followed by orthopedic surgery. No surgical intervention planned at this time. 6. Benign hypertension. Controlled this morning. 7. Metabolic acidosis secondary to acute kidney injury and IV fluids. 8. Lower extremity edema. 9. Constipation. Lactulose ordered. Plan: Hep-Lock IV fluids. Hold SEVERO inhibitor for now. Lokelma ordered by primary team. Add oral Lasix 20 mg twice daily. Add oral bicarb. Repeat potassium level this evening. Avoid nephrotoxins. Blood sugar control. Patient is advised to follow up outpatient to establish CKD care. Thank you for the consultation. I will continue to follow the patient with you during his hospital stay.
[2021-12-18 12:48] LABS: Glucose,Whole Blood 226 mg/dL (70-110)
[2021-12-18] MEDS: LACTULOSE 20 GM/30 ML CUP PO PRN (12:56)
[2021-12-18] MEDS: SODIUM BICARBONATE TAB 650 MG TAB PO SCH ×3 (12:56→20:58)
--- NOTE | 2021-12-18 14:07 | P.PN ---
Progress Note - Text Progress Note Date: 12/18/21 Chief Complaint: Back pain This is a pleasant 71-year-old patient follows with Dr. Johntson. Chronic stable medical conditions include CAD with stent, hypertension, some cognitive impairment, chronically uses a cane. Patient has known gallstones and kidney stone. About 2 weeks ago rather suddenly patient developed pain describes the middle of the mid to lower back. Pain sometimes does radiate down to the sites. Slight nausea. Patient did get pain medications from his family doctor. It has been unclear if patient's kidney stones were causing his symptoms. No change in urinary symptoms. At her baseline has 2 or 3 bowel movements a day now but has been some constipation because of pain medication using a laxative. Denies any fever. Denies any fall. Any movement makes the pain worse. Finding it difficult to walk because of the same. 12/18/2021: Patient seen by urology. Did confirm that left renal stone not responsible for symptoms. Seen by orthopedic. Brace ordered. Elevated potassium. Lokelma ordered. Sodium bicarbonate added. Discussed with patient. Active Medications Acetaminophen (Acetaminophen Tab 325 Mg Tab) 650 mg PO Q6HR PRN PRN Reason: Mild Pain or Fever > 100.5 Hydrocodone Bitart/Acetaminophen (Hydrocodone/Apap 5-325mg 1 Each Tab) 1 each PO Q6HR [facility] Last Admin: 12/18/21 12:56 Dose: 1 each Aspirin (Aspirin 81 Mg) 81 mg PO DAILY [facility] Last Admin: 12/18/21 08:51 Dose: 81 mg Atorvastatin Calcium (Atorvastatin 80 Mg Tab) 80 mg PO HS [facility] Last Admin: 12/17/21 19:58 Dose: 80 mg Calcium Carbonate/Glycine (Calcium Carbonate 500 Mg Chewable) 1,000 mg PO Q4HR PRN PRN Reason: Dyspepsia Cyclobenzaprine HCl (Cyclobenzaprine 5 Mg Tab) 5 mg PO TID [facility] Last Admin: 12/18/21 08:51 Dose: 5 mg Dextrose/Water (Dextrose 50% Syringe 50 Ml) 25 ml IVP PER PROTOCOL PRN; Protocol PRN Reason: Hypoglycemia Dextrose/Water (Dextrose 50% Syringe 50 Ml) 50 ml IVP PER PROTOCOL PRN; Protocol PRN Reason: Hypoglycemia Enoxaparin Sodium (Enoxaparin 40 Mg/0.4 Ml Syringe) 40 mg SQ DAILY [facility] Last Admin: 12/18/21 08:51 Dose: 40 mg Furosemide (Furosemide 20 Mg Tab) 20 mg PO BID@0900,1600 [facility] Insulin Aspart (Insulin Aspart (Novolog) 100 Unit/Ml Vial) 0 unit SQ AC-TID [facility]; Protocol Last Admin: 12/18/21 12:56 Dose: 100 unit Insulin Detemir (Insulin Detemir (Levemir) 100 Unit/Ml Syr) 16 unit SQ DAILY@0700 [facility] Last Admin: 12/18/21 08:51 Dose: 16 unit Lactulose (Lactulose 20 Gm/30 Ml Cup) 20 gm PO DAILY PRN PRN Reason: Constipation Last Admin: 12/18/21 12:56 Dose: 20 gm Lidocaine (Lidocaine 5% Patch) 1 patch TOPICAL DAILY [facility]; Protocol Last Admin: 12/18/21 08:50 Dose: 1 patch Lorazepam (Lorazepam 0.5 Mg Tab) 0.5 mg PO Q6HR PRN PRN Reason: Anxiety Metoprolol Tartrate (Metoprolol Tartrate 25 Mg Tab) 25 mg PO BID [facility] Last Admin: 12/18/21 08:51 Dose: 25 mg Multivitamins (Multivitamins, Thera 1 Each Tab) 1 each PO DAILY [facility] Last Admin: 12/18/21 08:51 Dose: 1 each Naloxone HCl (Naloxone 0.4 Mg/Ml 1 Ml Vial) 0.2 mg IV Q2M PRN PRN Reason: Opioid Reversal Ondansetron HCl (Ondansetron 4 Mg/2 Ml Vial) 4 mg IVP Q8HR PRN PRN Reason: Nausea And Vomiting Pantoprazole Sodium (Pantoprazole 40 Mg Tablet) 40 mg PO AC-BRKFST [facility] Last Admin: 12/18/21 08:51 Dose: 40 mg Sodium Bicarbonate (Sodium Bicarbonate Tab 650 Mg Tab) 650 mg PO TID [facility] Last Admin: 12/18/21 12:56 Dose: 650 mg Sodium Zirconium Cyclosilicate (Sodium Zirconium Cyclosilicate 10 Gm Packet) 10 gm PO TID [facility] Stop: 12/18/21 22:01 Tamsulosin HCl (Tamsulosin 0.4 Mg Cap.Er.24h) 0.4 mg PO DAILY [facility] Last Admin: 12/18/21 08:51 Dose: 0.4 mg Temazepam (Temazepam 15 Mg Cap) 15 mg PO HS PRN PRN Reason: Insomnia Past medical history to include: CAD with stent, hypertension, some cognitive impairment, hypertension Social history: . Retired from factory work. No alcohol. Stopped smoking over 20 years ago. Family history: Reviewed, noncontributory to presentation Physical examination: VITAL SIGNS: 97.6, 101, 20, 11 7/74, 98% room air GENERAL: sitting up in a chair not in distress EYES: Pupils equal. Conjunctiva normal. HEENT: External appearance of nose and ears normal, oral cavity grossly normal decreased hearing. NECK: JVD not raised; masses not palpable. HEART: First and second heart sounds are normal; no edema. LUNGS: Respiratory rate normal; clear to auscultation. ABDOMEN: Soft, nontender, liver spleen not palpable, no masses palpable. PSYCH: Alert and oriented x3; mood and affect normal. MUSCULOSKELETAL:No Clubbing/cyanosis;muscles-grossly intact, reproducible pain on moving the back on her axial axis. Mild tenderness bilaterally in the paraspinal area in the lumbar area INVESTIGATIONS, reviewed in the clinical context: Lumbar spine x-ray: deformity compression of L1/L4. Demineralization. Renal ultrasound: Left renal calculus. December 18: Potassium 5.5 BUN 30 creatinine 2.03 WBC 9.3 hemoglobin 11.2 platelets 327 sodium 133 potassium 5 be on 27 creatinine 1.91 UA: Glucose trace Computed tomography scan abdomen and pelvis without contrast: Multiple calcified gallstones. Mild ducts not dilated. 2 mm calculus lower pole left kidney. L1 compression fraction 30%. Could be acute. L4 mild compression fracture. Assessment and plan: - acute mid back pain - L1 compression fracture for her to be acute and possible L4 that is chronic. Pending brace. [place] 5 scheduled. Flexeril for muscle spasm. Avoid NSAIDs because of kidney function. K pad. Seen by orthopedic. -Left kidney 2 mm kidney stone. Not felt to be causing the presentation Seen by Dr. Braden from urology -Hyper kalemia: New diagnosis Lokelma 2 doses. Renal diet -Calcified right-sided cholelithiasis. No right upper quadrant tenderness. - asymptomatic -CAD with stent Aspirin, Lopressor -Diabetes mellitus type 2 on oral hypoglycemic Stop metformin because of renal function. Levemir 16 units. Follow Accu-Cheks with sliding scale -Hyperlipidemia Lipitor -Acute versus chronic kidney disease. Patient had been taking Motrin at home. Hold the same. Hold quinapril. IV fluids. Renal ultrasound. Repeat labs. -GERD Nexium -BPH Flomax Lokelma. Renal diet. Increase activity as tolerated. Brace ordered.
[2021-12-18] MEDS: FUROSEMIDE 20 MG TAB PO SCH (16:17)
[2021-12-18] MEDS: SODIUM ZIRCONIUM CYCLOSILICATE 10 GM PACKET PO SCH ×2 (16:17→20:58)
[2021-12-18] MEDS ORDERED: SENNOSIDES 8.6 MG TAB PO PRN (16:19)
[2021-12-18 16:31] LABS: Glucose,Whole Blood 226 mg/dL (70-110)
[2021-12-18] MEDS ORDERED: SODIUM ZIRCONIUM CYCLOSILICATE 10 GM PACKET PO ONE (18:30)
[2021-12-18 20:49] LABS: Glucose,Whole Blood 277 mg/dL (70-110)
[2021-12-18] MEDS: ATORVASTATIN 80 MG TAB PO SCH (20:58)
[2021-12-19] MEDS: HYDROcodone/APAP 5-325MG 1 EACH TAB PO SCH ×3 (00:08→12:49)
[2021-12-19] MEDS ORDERED: polyethylene glycoL 3350 17 GM POWD.PACK PO PRN (06:54)
[2021-12-19 07:04] LABS: Glucose,Whole Blood 242 mg/dL (70-110)
[2021-12-19 07:06] LABS: African American GFR (CKD) 43 (>60 ml/min/1.73 sqM); Anion Gap 13 mmol/L; Blood Urea Nitrogen 26 mg/dL (9-20); Calcium 8.6 mg/dL (8.4-10.2); Carbon Dioxide 22 mmol/L (22-30); Chloride 99 mmol/L (98-107); Glucose 219 mg/dL (74-99); Magnesium 1.3 mg/dL (1.6-2.3); Non-African American GFR(CKD) 37 (>60 ml/min/1.73 sqM); Potassium 5.1 mmol/L (3.5-5.1); Sodium 134 mmol/L (137-145)
[2021-12-19] MEDS: MULTIVITAMINS, THERA 1 EACH TAB PO SCH (08:49)
[2021-12-19] MEDS: PANTOPRAZOLE 40 MG TABLET PO SCH (08:49)
[2021-12-19] MEDS: TAMSULOSIN 0.4 MG CAP.ER.24H PO SCH (08:49)
[2021-12-19] MEDS: SODIUM BICARBONATE TAB 650 MG TAB PO SCH (08:49)
[2021-12-19] MEDS: CYCLOBENZAPRINE 5 MG TAB PO SCH (08:49)
[2021-12-19] MEDS: LACTULOSE 20 GM/30 ML CUP PO PRN (08:49)
[2021-12-19] MEDS: FUROSEMIDE 20 MG TAB PO SCH (08:49)
[2021-12-19] MEDS: ENOXAPARIN 40 MG/0.4 ML SYRINGE SQ SCH (08:50)
[2021-12-19] MEDS: INSULIN ASPART (NovoLOG) 100 UNIT/ML VIAL SQ SCH ×2 (08:50→12:49)
[2021-12-19] MEDS: METOPROLOL TARTRATE 25 MG TAB PO SCH (08:50)
[2021-12-19] MEDS: ASPIRIN 81 MG PO SCH (08:50)
[2021-12-19] MEDS: LIDOCAINE 5% PATCH TOPICAL SCH (08:51)
[2021-12-19] MEDS: INSULIN DETEMIR (LEVEMIR) 100 UNIT/ML SYR SQ SCH (08:51)
--- NOTE | 2021-12-19 09:08 | P.PN ---
Subjective Progress Note Date: 12/19/21 Principal diagnosis: Is a 71-year-old male seen in consultation because of chronic kidney disease and possible acute kidney injury. No baseline creatinine available. Patient might have seen a oracle adf developer outside but is unaware of the details. Came in with back pain and a computed tomography scan shows L1 fracture which may be acute. Also has a nonobstructing kidney stone computed tomography scan which is not visualized on ultrasound. Ultrasound shows 11.7 cm and 11.8 cm right and left kidney no hydronephrosis. Patient is feeling better pain is less. No nausea vomiting appetite is great. No dizziness cramps Objective - Vital Signs Vital signs: Vital Signs Temp 97.5 F L 12/19/21 07:33 Pulse 68 12/19/21 07:33 Resp 20 12/19/21 07:33 BP 130/81 12/19/21 07:33 Pulse Ox 98 12/19/21 07:33 FiO2 Intake & Output 12/18/21 12/19/21 12/19/21 18:59 06:59 18:59 Intake Total 450 Balance 450 Intake: Oral 450 Other: Voiding Method Toilet # Voids 3 3 On examination is awake alert oriented comfortable A chin exam no JVP neck is supple no facial asymmetry Lungs clear to auscultation good air entry bilaterally Heart sounds unremarkable Abdomen soft nontender Extreme exam was 1-2+ edema Neurologically awake alert oriented - Labs CBC & Chem 7: 12/17/21 01:43 12/19/21 05:46 Labs: Abnormal Lab Results - Last 24 Hours (Table) 12/18/21 12/18/21 12/18/21 Range/Units 12:47 16:30 17:01 Sodium (137-145) mmol/L Potassium 5.3 H (3.5-5.1) mmol/L BUN (9-20) mg/dL Creatinine (0.66-1.25) mg/dL Glucose (74-99) mg/dL POC Glucose (mg/dL) 226 H 226 H (70-110) mg/dL Magnesium (1.6-2.3) mg/dL 12/18/21 12/19/21 12/19/21 Range/Units 20:48 05:46 07:02 Sodium 134 L (137-145) mmol/L Potassium (3.5-5.1) mmol/L BUN 26 H (9-20) mg/dL Creatinine 1.80 H (0.66-1.25) mg/dL Glucose 219 H (74-99) mg/dL POC Glucose (mg/dL) 277 H 242 H (70-110) mg/dL Magnesium 1.3 L (1.6-2.3) mg/dL Assessment and Plan Assessment: Impression 1. Acute kidney injury, versus chronic kidney disease no previous creatinines available. Creatinine is 1.91 on admission is 1.8 this morning, Ultrasound shows 11.7 cm kidneys, urine analysis benign no proteinuria. History of diabetes mellitus 2. Back pain with computed tomography scan showing L1 compression fracture. 3. Nonobstructive kidney stone. 4. Diabetes mellitus 5. Gap and non-gap acidosis improving etiology is chronic kidney disease 6. Anemia hemoglobin is 11.2 etiology is chronic kidney disease. 7. History of coronary artery disease. History of stent 8. History of dementia. 9. Edema 10. Hypertension blood pressure is at target Recommendation 1. Continue sodium bicarb. 2. Regarding the day, he is on Lasix 20 mg twice a day by mouth this should suffice for now 3. Follow-up in office in one week
[2021-12-19 11:54] LABS: Glucose,Whole Blood 315 mg/dL (70-110)
[2021-12-19 15:32] VITALS: BP 125/66; PULSE 89; RESP 14; TEMP 97.9
--- NOTE | 2021-12-19 17:08 | P.DS ---
Providers Date of admission: 12/17/21 04:33 Expected date of discharge: 12/19/21 Attending physician: Charly Corbin Consults: 12/17/21 04:32 Consult Physician Routine Consulting Provider: Nasim Odom Consult Reason/Comments: back pain Do you want consulting provider notified?: Yes 12/17/21 11:18 Consult Physician Routine Consulting Provider: Felix Dover Consult Reason/Comments: kidney pain Do you want consulting provider notified?: Yes 12/18/21 09:54 Consult Physician Routine Consulting Provider: Hector Gorman Consult Reason/Comments: CKD Do you want consulting provider notified?: Yes Primary care physician: [facility] Course: Chief Complaint: Back pain This is a pleasant 71-year-old patient follows with Dr. Johnston. Chronic stable medical conditions include CAD with stent, hypertension, some cognitive impairment, chronically uses a cane. Patient has known gallstones and kidney stone. About 2 weeks ago rather suddenly patient developed pain describes the middle of the mid to lower back. Pain sometimes does radiate down to the sites. Slight nausea. Patient did get pain medications from his family doctor. It has been unclear if patient's kidney stones were causing his symptoms. No change in urinary symptoms. At her baseline has 2 or 3 bowel movements a day now but has been some constipation because of pain medication using a laxative. Denies any fever. Denies any fall. Any movement makes the pain worse. Finding it difficult to walk because of the same. 12/18/2021: Patient seen by urology. Did confirm that left renal stone not responsible for symptoms. Seen by orthopedic. Brace ordered. Elevated potassium. Lokelma ordered. Sodium bicarbonate added. Discussed with patient. 12/19/2021: Pain much better. Able to walk with walker. Brace will be picked up from the company. Patient uses heating pad at home. Questions answered. Discussion and discharge planning more than 35 minutes Past medical history to include: CAD with stent, hypertension, some cognitive impairment, hypertension Social history: . Retired from factory work. No alcohol. Stopped smoking over 20 years ago. Family history: Reviewed, noncontributory to presentation Physical examination: VITAL SIGNS: 97.9, 89, 14, 1 25 x 76, 98% room air GENERAL: sitting up in a chair comfortable EYES: Pupils equal. Conjunctiva normal. HEENT: External appearance of nose and ears normal, oral cavity grossly normal decreased hearing. NECK: JVD not raised; masses not palpable. HEART: First and second heart sounds are normal; no edema. LUNGS: Respiratory rate normal; clear to auscultation. ABDOMEN: Soft, nontender, liver spleen not palpable, no masses palpable. PSYCH: Alert and oriented x3; mood and affect normal. INVESTIGATIONS, reviewed in the clinical context: December 19: BUN 26 creatinine 1.80 Lumbar spine x-ray: deformity compression of L1/L4. Demineralization. Renal ultrasound: Left renal calculus. December 18: Potassium 5.5 BUN 30 creatinine 2.03 WBC 9.3 hemoglobin 11.2 platelets 327 sodium 133 potassium 5 be on 27 creatinine 1.91 UA: Glucose trace Computed tomography scan abdomen and pelvis without contrast: Multiple calcified gallstones. Mild ducts not dilated. 2 mm calculus lower pole left kidney. L1 compression fraction 30%. Could be acute. L4 mild compression fracture. Assessment and plan: - acute mid back pain - L1 compression fracture for her to be acute and possible L4 that is chronic. Pending brace. [place] when necessary. Flexeril for muscle spasm. Avoid NSAIDs because of kidney function. K pad. Seen by orthopedic. -Left kidney 2 mm kidney stone. Not felt to be causing the presentation Seen by Dr. Lucas from urology -Hyperkalemia: Lokelma 2 doses. Renal diet -Calcified right-sided cholelithiasis. No right upper quadrant tenderness. - asymptomatic -CAD with stent Aspirin, Lopressor -Diabetes mellitus type 2 on oral hypoglycemic Glucotrol. Metformin discontinued. Follow Accu-Cheks with sliding scale -Hyperlipidemia Lipitor -Chronic kidney disease stage III likely nephrosclerosis Creatinine down to 1.8 -GERD Nexium -BPH Flomax Disposition: Home Plan - Discharge Summary Discharge Rx Participant: No New Discharge Prescriptions: New Lidocaine 5% Patch [Lidoderm 5% Patch] 1 patch TOPICAL DAILY #14 patch Sodium Bicarbonate Tab 650 mg PO TID #30 tab Cyclobenzaprine [Flexeril] 5 mg PO TID PRN #30 tab PRN Reason: Spasms Furosemide [Lasix] 20 mg PO BID@0900,1600 #60 tab Continue Quinapril HCl 10 mg PO DAILY Multivitamins, Thera [Multivitamin (formulary)] 1 tab PO DAILY glipiZIDE [Glucotrol] 10 mg PO AC-BID Esomeprazole Magnesium [NexIUM] 20 mg PO DAILY Atorvastatin [Lipitor] 80 mg PO HS Aspirin EC [Ecotrin Low Dose] 81 mg PO DAILY Tamsulosin HCl [Flomax] 0.4 mg PO DAILY Metoprolol Tartrate [Lopressor] 25 mg PO BID HYDROcodone/APAP 10-325MG [[place] 10-325] 1 tab PO TID Discontinued metFORMIN HCL [Glucophage] 1,700 mg PO BID Ibuprofen [Motrin] 800 mg PO TID No Action [place] 500 mg PO DAILY Discharge Medication List Aspirin EC [Ecotrin Low Dose] 81 mg PO DAILY 12/17/21 [History] Atorvastatin [Lipitor] 80 mg PO HS 12/17/21 [History] Esomeprazole Magnesium [NexIUM] 20 mg PO DAILY 12/17/21 [History] HYDROcodone/APAP 10-325MG [[place] 10-325] 1 tab PO TID 12/17/21 [History] Metoprolol Tartrate [Lopressor] 25 mg PO BID 12/17/21 [History] Multivitamins, Thera [Multivitamin (formulary)] 1 tab PO DAILY 12/17/21 [History] Quinapril HCl 10 mg PO DAILY 12/17/21 [History] [place] 500 mg PO DAILY 12/17/21 [History] Tamsulosin HCl [Flomax] 0.4 mg PO DAILY 12/17/21 [History] glipiZIDE [Glucotrol] 10 mg PO AC-BID 12/17/21 [History] Cyclobenzaprine [Flexeril] 5 mg PO TID PRN #30 tab 12/19/21 [Rx] Furosemide [Lasix] 20 mg PO BID@0900,1600 #60 tab 12/19/21 [Rx] Lidocaine 5% Patch [Lidoderm 5% Patch] 1 patch TOPICAL DAILY #14 patch 12/19/21 [Rx] Sodium Bicarbonate Tab 650 mg PO TID #30 tab 12/19/21 [Rx] Follow up Appointment(s)/Referral(s): Nasim Odom DO [Doctor of Osteopathic Medicine] - 2 Weeks Ashutosh Johnston MD [Primary Care Provider] - 1-2 days Hector Gorman DO [STAFF PHYSICIAN] - 2 Weeks Haydee Yanez [NON-STAFF] - As Needed (Please call Fatmata if you have questions regarding the LSO back brace. ) Patient Instructions/Handouts: Vertebral Compression Fracture (DC) Activity/Diet/Wound Care/Special Instructions: If patient is discharged prior to receiving LSO back brace from Jennifer, please have patient call Jennifer to follow up regarding picking up brace. #[phone]. Discharge Disposition: HOME SELF-CARE
== END 2021-12-19 16:20 | disposition home or self-care (01) | DRG 543 ==
LOC: EC 20:28 → 4SSUR 12-17 04:33
PROVIDERS: ADMIT Hospitalist; ATTEND Hospitalist
DX: M48.56XA Collapsed vertebra, not elsewhere classified, lumbar region, initial encounter for fracture (principal); E87.20 Acidosis, unspecified; N17.9 Acute kidney failure, unspecified; N20.0 Calculus of kidney; E87.5 Hyperkalemia; K80.20 Calculus of gallbladder without cholecystitis without obstruction; I25.10 Atherosclerotic heart disease of native coronary artery without angina pectoris; N18.30 Chronic kidney disease, stage 3 unspecified; I12.9 Hypertensive chronic kidney disease with stage 1 through stage 4 chronic kidney disease, or unspecified chronic kidney disease; E78.5 Hyperlipidemia, unspecified; E11.22 Type 2 diabetes mellitus with diabetic chronic kidney disease; K21.9 Gastro-esophageal reflux disease without esophagitis; N40.0 Benign prostatic hyperplasia without lower urinary tract symptoms; M62.838 Other muscle spasm; R60.0 Localized edema; F03.90 Unspecified dementia, unspecified severity, without behavioral disturbance, psychotic disturbance, mood disturbance, and anxiety; D63.1 Anemia in chronic kidney disease; K59.03 Drug induced constipation; T50.995A Adverse effect of other drugs, medicaments and biological substances, initial encounter; Z87.442 Personal history of urinary calculi; Z95.5 Presence of coronary angioplasty implant and graft; Z79.4 Long term (current) use of insulin; Z79.82 Long term (current) use of aspirin; Z79.84 Long term (current) use of oral hypoglycemic drugs; Z79.899 Other long term (current) drug therapy; Z87.891 Personal history of nicotine dependence; Z87.81 Personal history of (healed) traumatic fracture
CPT/HCPCS: 36415; 72100; 74176; 76770; 80048; 80053; 81003; 82150; 83605; 83690; 83735; 84132; 85025; 96361; 96374; 96375; 96376; 99285